=== PATIENT | male | born 1995 ===

== ENCOUNTER 2018-12-28 14:33 | Emergency (ER) | payer OTHER ==
[2018-12-28] MEDS ORDERED: LORazepam 1 MG TABLET PO STA (15:19)
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
[2018-12-28 16:27] VITALS: BP 132/86
== END 2018-12-28 16:28 | disposition home or self-care (01) ==
LOC: ED 14:33
DX: F10.988 Alcohol use, unspecified with other alcohol-induced disorder (principal); R11.0 Nausea; R25.1 Tremor, unspecified; F41.9 Anxiety disorder, unspecified; R94.31 Abnormal electrocardiogram [ECG] [EKG]
CPT/HCPCS: 93005; 99283; 99284; J8499

== ENCOUNTER 2019-01-22 18:26 | Emergency (ER) | payer OTHER ==
[2019-01-22] MEDS ORDERED: PROPARACAINE 0.5% OPHTH DROPS 15 ML EACHEYE STA (18:51)
[2019-01-22] MEDS ORDERED: levoFLOXacin 0.5% OPHTH DROPS 5 ML RIGHTEYE STA (19:17)
--- NOTE | 2019-01-22 19:19 | ED Physician Documentation ---
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 Starting today he felt right eye irritation. He took his contact lenses out but the symptoms persisted. There is no visual deficit. He does wear his contacts overnight.) Review of Systems Constitutional: reports: Reviewed and negative Eyes: reports: Discharge, Irritation Ears: denies: Loss of hearing, Ear pain Nose: reports: Rhinorrhea / runny nose, Congestion PD PAST MEDICAL HISTORY - Past Medical History Past Medical History: No - Past Surgical History Past Surgical History: No - Allergies Allergies/Adverse Reactions: Allergies Allergy/AdvReac Type Severity Reaction Status Date / Time No Known Drug Allergies Allergy Verified 01/22/19 18:31 - Social History Does the pt smoke?: No Smoking Status: Never smoker Does the pt drink ETOH?: Yes Does the pt have substance abuse?: No - Immunizations Immunizations are current?: Yes - POLST Patient has POLST: No PD ED PE NORMAL - Vitals Vital signs reviewed: Yes - General General: Alert and oriented X 3, No acute distress - HEENT HEENT: PERRL, EOMI, Other (The right eye there is a tiny less than 1 mm corneal ulcer just superolateral to the visual axis. He also has quite swollen turbinates.) - Neck Neck: Supple, no meningeal sign, No bony TTP - Neuro Neuro: Alert and oriented X 3, Normal speech Results - Vitals Vitals: Vital Signs - 24 hr 01/22/19 18:31 Temperature 36.8 C Heart Rate 86 Respiratory 16 Rate Blood Pressure 103/58 L O2 Saturation 94 Oxygen O2 Source Room air Departure - Departure Disposition: 01 Home, Self Care Clinical Impression: Corneal ulcer of right eye Condition: Good Record reviewed to determine appropriate education?: Yes Instructions: ED Ulcer Cornea Comments: You need to use the antibiotic drops every 2 hours overnight. [place], go to the [facility] and let them know that you have a corneal ulcer, go first thing in the morning at 8 AM. Return for new worsening symptoms. Do not Wear your contact lenses until cleared by the [employer]. Forms: Activity restrictions
[2019-01-22 19:29] VITALS: BP 124/86
== END 2019-01-22 19:45 | disposition home or self-care (01) ==
LOC: ED 18:26
DX: H16.001 Unspecified corneal ulcer, right eye (principal)
CPT/HCPCS: 99282; A9270; J3490

== ENCOUNTER 2019-02-27 15:44 | Emergency (ER) | payer OTHER | END 2019-02-27 16:05 | disposition left against medical advice (07) | LOC: ED 15:44 | DX: Z53.21 Procedure and treatment not carried out due to patient leaving prior to being seen by health care provider (principal) ==